=== PATIENT | male | born 1960 | race Caucasian/White ===

== ENCOUNTER 2017-05-11 11:41 | Emergency (ER) | payer BC ==
[~2017-05-11] VITALS: Ht 177.8 cm; Wt 200.5 kg
[2017-05-11 12:19] LABS: BASO # 0.1 x10^3/uL (0.0-0.2); BASO % 1 % (0-3); EOS # 0.1 x10^3/uL (0.0-0.7); EOS % 2 % (0-3); HEMATOCRIT 40.9 % (39.0-53.0); HEMOGLOBIN 13.7 g/dL (13.0-17.5); LYMPH # 1.2 x10^3/uL (1.0-4.8); LYMPH % 18 % (24-48); MEAN CORPUSCULAR HEMOGLOBIN 29 pg (25-35); MEAN CORPUSCULAR HGB CONC 33 g/dL (31-37); MEAN CORPUSCULAR VOLUME 87 fL (79-100); MONO # 0.5 x10^3/uL (0.0-1.1); MONO % 7 % (0-9); NEUT # 5.2 x10^3uL (1.8-7.7); NEUT % 72 % (31-73); PLATELET COUNT 126 x10^3/uL (140-400); RED BLOOD COUNT 4.72 x10^6/uL (4.30-5.70); RED CELL DISTRIBUTION WIDTH 16.6 % (11.5-14.5); WHITE BLOOD COUNT 7.1 x10^3/uL (4.0-11.0)
[2017-05-11 12:26] LABS: ALBUMIN 3.3 g/dL (3.4-5.0); ALBUMIN/GLOBULIN RATIO 0.8 (1.0-1.7); CALCIUM 8.7 mg/dL (8.5-10.1); CREATININE 1.7 mg/dL (0.7-1.3); GFR 41.9; POTASSIUM 3.4 mmol/L (3.5-5.1); TOTAL BILIRUBIN 0.5 mg/dL (0.2-1.0); TOTAL PROTEIN 7.3 g/dL (6.4-8.2)
--- NOTE | 2017-05-11 12:37 | ED.ADGEN ---
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 Patient felt his usual state of health last night and then this morning upon waking while [place] the shooting range morning, the patient felt dizzy, confused and noted to have slurring of speech. Denies headache, change in vision, neck pain, stiffness, focal extremity weakness or loss of sensation. Patient brought to the ED for further evaluation. Patient noted to be hypotensive with initial systolic blood pressure in the 80s. Patient's blood sugar is 150s. Patient has slurring of speech is clear. He is regarding dates. GCS of 14. Patient denies drug alcohol or medication use prior to symptom onset. Patient does have evidence history of hypertension recently had his losartan increased from 180 to 360 mg daily. Patient has history of sleep apnea but does not use his CPAP machine at night. No other acute symptoms or complaints. History is limited due to the patient's clinical condition. Review of Systems Review of Systems ROS as per HPI. Current Medications Current Medications Current Medications Medications (Trade) Dose Ordered Sig/Moises Start Time Stop Time Status Last Admin Dose Admin Sodium Chloride 1,000 ml @ 1,000 mls/hr 1X ONCE 05/11/17 14:00 05/11/17 14:59 05/11/17 13:46 1,000 MLS/HR Allergies Allergies Allergies Coded Allergies Type Severity Reaction Last Updated Verified No Known Drug Allergies 05/11/17 No Physical Exam Physical Exam Constitutional: Well developed, well nourished, somnolent with slurring of speech. [] HENT: Normocephalic, atraumatic, bilateral external ears normal, oropharynx moist, no oral exudates, nose normal. [] Eyes: PERRLA, EOMI, horizontal nystagmus, fatigues on exam. [] Neck: Normal range of motion, no tenderness, supple, no stridor. [] Cardiovascular:Heart rate regular rhythm, no murmur [] Lungs & Thorax: Bilateral breath sounds clear to auscultation [] Abdomen: Bowel sounds normal, soft, no tenderness, obesity compromising evaluation. [] Skin: Warm, dry, no erythema, no rash. [] Back: No tenderness. [] Extremities: No tenderness, no cyanosis, no clubbing, ROM intact, no edema. [] Neurologic: Alert and oriented X 2, cranial nerves II through XII grossly intact , normal motor function, normal sensory function, no focal deficits noted. [] Psychologic: Affect normal, judgement normal, mood normal. [] Current Patient Data Vital Signs Vital Signs Date Time Temp Pulse Resp B/P (MAP) Pulse Ox O2 Delivery O2 Flow Rate FiO2 05/11/17 14:01 80 20 84/44 (57) 94 Room Air 4.0 05/11/17 11:41 98.4 Lab Results Laboratory Tests Test 05/11/17 12:00 05/11/17 12:43 05/11/17 13:12 White Blood Count 7.1 x10^3/uL (4.0-11.0) Red Blood Count 4.72 x10^6/uL (4.30-5.70) Hemoglobin 13.7 g/dL (13.0-17.5) Hematocrit 40.9 % (39.0-53.0) Mean Corpuscular Volume 87 fL (79-100) Mean Corpuscular Hemoglobin 29 pg (25-35) Mean Corpuscular Hemoglobin Concent 33 g/dL (31-37) Red Cell Distribution Width 16.6 % (11.5-14.5) H Platelet Count 126 x10^3/uL (140-400) L Neutrophils (%) (Auto) 72 % (31-73) Lymphocytes (%) (Auto) 18 % (24-48) L Monocytes (%) (Auto) 7 % (0-9) Eosinophils (%) (Auto) 2 % (0-3) Basophils (%) (Auto) 1 % (0-3) Neutrophils # (Auto) 5.2 x10^3uL (1.8-7.7) Lymphocytes # (Auto) 1.2 x10^3/uL (1.0-4.8) Monocytes # (Auto) 0.5 x10^3/uL (0.0-1.1) Eosinophils # (Auto) 0.1 x10^3/uL (0.0-0.7) Basophils # (Auto) 0.1 x10^3/uL (0.0-0.2) Sodium Level 138 mmol/L (136-145) Potassium Level 3.4 mmol/L (3.5-5.1) L Chloride Level 100 mmol/L (98-107) Carbon Dioxide Level 31 mmol/L (21-32) Anion Gap 7 (6-14) Blood Urea Nitrogen 31 mg/dL (8-26) H Creatinine 1.7 mg/dL (0.7-1.3) H Estimated GFR (Cockcroft-Gault) 41.9 BUN/Creatinine Ratio 18 (6-20) Glucose Level 171 mg/dL (70-99) H Calcium Level 8.7 mg/dL (8.5-10.1) Total Bilirubin 0.5 mg/dL (0.2-1.0) Aspartate Amino Transferase (AST) 63 U/L (15-37) H Alanine Aminotransferase (ALT) 79 U/L (16-63) H Alkaline Phosphatase 70 U/L (46-116) Troponin I Quantitative < 0.017 ng/mL (0-0.055) Total Protein 7.3 g/dL (6.4-8.2) Albumin 3.3 g/dL (3.4-5.0) L Albumin/Globulin Ratio 0.8 (1.0-1.7) L Ethyl Alcohol Level < 10 mg/dL (0-10) Acetone Level Neg (NEG) Blood pH 7.44 (7.35-7.46) Blood Gas PCO2 44 mmHg (35-46) Blood Gas PO2 59 mmHg (80-100) L Blood Gas HCO3 30 mmol/L (21-28) H Arterial Bld O2 Saturation (Calc) 91 % (92-99) L FiO2 21 % Glucose (Fingerstick) 142 mg/dL (70-99) H EKG EKG [EKG: Normal sinus rhythm, rate 86, no acute ST-T wave changes, QTC 465 EKG interpreted by physician.] Radiology/Procedures Radiology/Procedures [Chest x-ray: No acute cardiopulmonary disease. ] Course & Med Decision Making Course & Med Decision Making Pertinent Labs and Imaging studies reviewed. (See chart for details) [Patient hypotensive with slurring of speech and confusion. CT head negative. BS normal. No focal neuro deficits on exam. Repeat fluid boluses given. Dr. Mujica accepts to [facility] ICU. ] Final Impression Final Impression [1. Altered mental status 2. Hypotension] Problems: Dragon Disclaimer Dragon Disclaimer This electronic medical record was generated, in whole or in part, using a voice recognition dictation system. MILTON ESTRADA DO May 11, 2017 12:37
--- NOTE | 2017-05-11 12:41 | RAD ---
AP portable chest radiograph 05/11/2017 Clinical History: Shortness of breath. An AP portable erect digital radiograph of the chest was obtained. No previous studies are available for comparison. The cardiac and mediastinal silhouettes are within normal limits in size and configuration. No acute pulmonary infiltrate is seen. No pleural effusion or pneumothorax is noted. Degenerative changes are seen involving the thoracic spine. Impression: No acute abnormality is seen.
--- NOTE | 2017-05-11 13:04 | RAD ---
Exam performed: CT scan of the head without contrast. Date of Service: 09/26/13. Comparison: None available. Clinical History: Dizziness and syncope. Technique: Helical acquisitions are obtained from the foramen magnum to the vertex without intravenous administration of contrast. Findings: The ventricles are midline without evidence of dilatation. Normal eisenberg-white differentiation is maintained. There is no extra axial fluid collection, intraparenchymal hemorrhage or mass lesion. The visualized portions of the orbits, paranasal sinuses and the mastoid air cells appear clear. The calvarium is intact. Impression: 1. No acute intracranial process detected. PQRS Compliance Statement: One or more of the following individualized dose reduction techniques were utilized for this examination: 1. Automated exposure control 2. Adjustment of the mA and/or kV according to patient size 3. Use of iterative reconstruction technique
[2017-05-11 13:09] LABS: BGAS PH 7.44 (7.35-7.46)
[2017-05-11] MEDS ORDERED: IV NORMAL SALINE 1,000ML 1,000 ML IV ONE ×2 (13:15→14:00)
[2017-05-11 14:01] VITALS: BP 84/44
== END 2017-05-11 15:00 | disposition short-term general hospital (02) ==
LOC: ER 11:41
DX: R41.82 Altered mental status, unspecified (principal); I95.9 Hypotension, unspecified; E11.9 Type 2 diabetes mellitus without complications; G47.33 Obstructive sleep apnea (adult) (pediatric); I10 Essential (primary) hypertension
CPT/HCPCS: 36415; 36600; 70450; 71010; 80053; 82010; 82803; 82947; 83605; 84484; 85025; 87040; 96360; 99285; G0480; J7030